=== PATIENT | female | born 1985 | race Caucasian/White ===

== ENCOUNTER 2016-09-17 04:25 | Emergency (ER) | payer BC ==
[2016-09-17] MEDS ORDERED: 0.9 % SODIUM CHLORIDE 1,000 ML IV ONE ×2 (04:52→06:30)
[2016-09-17] MEDS ORDERED: ONDANSETRON HCL/PF 4 MG/ 2ML VIAL IVP ONE (04:52)
[2016-09-17 05:03] LABS: BASOPHILS % 0.6 (0.0-1.5); EOSINOPHILS % 7.6 % (0.0-6.8); LYMPHOCYTES # 2.5 # k/uL (0.6-4.0); MEAN CORPUSCULAR HEMOGLOBIN 30.3 pg (28.0-34.0); MONOCYTES # 0.5 # k/uL (0.0-0.9); MONOCYTES % 4.1 % (0.0-11.0); NEUTROPHILS # 7.7 # k/uL (1.4-7.7)
[2016-09-17] MEDS ORDERED: KETOROLAC TROMETHAMINE 30 MG/1ML VIAL IVP ONE (05:16)
[2016-09-17] MEDS ORDERED: KETOROLAC TROMETHAMINE 30 MG/1ML VIAL ONE (05:16)
[2016-09-17 05:17] LABS: eGFR (African) > 60; eGFR (Non-African) > 60
[2016-09-17] MEDS ORDERED: PANTOPRAZOLE SODIUM 40 MG in 0.9 % SODIUM CHLORIDE 50 ML IV ONE (05:19)
--- NOTE | 2016-09-17 05:19 | ED Physician Documentation ---
General Adult - HISTORIAN Historian: patient - HPI Stated Complaint: abdominal pain, vomiting Chief Complaint: Abdominal Pain Additional Information: Cramping abdominal pain mid epigastric area since 2300 last evening. Also hurts in back, straight through. Took three tramadols about 0200 becausee she " thought they were 500 mgs each." Has had this pain occasionally since May, but it has never lasted this long. No mitigating or exacerbating factors noted. Last normal bowel movement yesterday. LNMP a month ago?? Has IUD. - ROS CONST: no problems. denies: fever GI/: nausea - PAST HX Past History: none Other History: none Surgeries/Procedures: none - SOCIAL HX Smoking History: non-smoker Alcohol Use: none Drug Use: none - FAMILY HX Family History: No - VITAL SIGNS Vital Signs: Vital Signs Temp Pulse Resp BP Pulse Ox 97.7 F 72 16 108/64 99 09/17/16 04:30 09/17/16 04:30 09/17/16 04:30 09/17/16 04:30 09/17/16 04:30 - REVIEWED ASSESSMENTS Nursing Assessment Reviewed: Yes Vitals Reviewed: Yes <BLANKA BEDOLLA - Last Filed: 09/17/16 07:03> - VITAL SIGNS Vital Signs: Vital Signs Temp Pulse Resp BP Pulse Ox 97.7 F 72 16 108/64 99 09/17/16 04:30 09/17/16 04:30 09/17/16 04:30 09/17/16 04:30 09/17/16 04:30 <Nicholas Cardona - Last Filed: 09/17/16 07:32> - PAST HX Allergies/Adverse Reactions: Allergies Allergy/AdvReac Type Severity Reaction Status Date / Time No Known Allergies Allergy Verified 09/17/16 04:50 Home Medications: Ambulatory Orders Medication Instructions Recorded NK [NK] 09/17/16 Progress - Progress Progress: Obstructive series with chest x-ray Clinical history: Recurrent epigastric pain and mid abdominal pain. Findings: Examination of the chest in single upright view demonstrates the lungs to be clear. Cardiovascular and mediastinal silhouettes are within normal limits. Examination of the abdomen in supine and upright views demonstrates gas and stool in the colon. There is no evidence of obstruction or free air. Properitoneal fat lines are preserved. There are no unusual intra-abdominal calcifications. Visualized visceral silhouettes are within normal limits. Intrauterine device is incidentally noted. Impression: 1. Negative study. Electronically signed on Sep 17, 2016 6:59:18 AM MARKER MACHINE ATTENDANT by: Garrett Duran to Dr. Eddy. <BLANKA BEDOLLA - Last Filed: 09/17/16 07:03> - Progress Progress: Pt finished 2 L NS IVF improved Drink plenty of fluids. May use [id number] stool softeners, such as Dulcolax. Use as directed. <Nicholas Cardona - Last Filed: 09/17/16 07:32> ED Results Lab/Radiology - Lab Results Lab Results: Lab Results 09/17/16 04:58 WBC 11.80 K/ul K/ul (4.00-12.00) RBC 4.79 M/ul M/ul (3.90-5.20) Hgb 14.5 g/dL g/dL (12.0-16.0) Hct 43.9 % % (34.5-46.5) MCV 91.5 fl fl (80.0-100.0) MCH 30.3 pg pg (28.0-34.0) MCHC 33.1 g/dL g/dL (30.0-36.0) RDW 12.1 % % (11.3-14.3) Plt Count 281 K/mm3 K/mm3 (130-400) Neut % (Auto) 65.7 % % (39.0-79.0) Lymph % (Auto) 20.9 % % (16.0-50.0) [place] % (Auto) 4.1 % % (0.0-11.0) Eos % (Auto) 7.6 % H % (0.0-6.8) Baso % (Auto) 0.6 (0.0-1.5) Neut # 7.7 # k/uL # k/uL (1.4-7.7) Lymph # 2.5 # k/uL # k/uL (0.6-4.0) [place] # 0.5 # k/uL # k/uL (0.0-0.9) Eos # 0.9 # k/uL H # k/uL (0.0-0.6) Baso # 0.1 # k/uL # k/uL (0.0-0.5) Reactive Lymphs % 1.1 % % (0.0-5.0) Reactive Lymphs # 0.1 # k/uL # k/uL (0.0-0.8) - Orders Orders: ED Orders Category Date Time Status AMYLASE Routine Lab 09/17/16 04:58 Received CBC/PLATELET/DIFF Routine Lab 09/17/16 04:58 Completed CMP Routine Lab 09/17/16 04:58 Received URINALYSIS Routine Lab 09/17/16 Ordered 0.9 % Sodium Chloride [Normal Saline] 1,000 ml Med 09/17/16 04:52 Active IV Q1H Ketorolac Tromethamine [Toradol] Med 09/17/16 05:16 Discontinued 30 mg .ROUTE .STK-MED ONE Ketorolac Tromethamine [Toradol] Med 09/17/16 05:16 Once 30 mg IVP NOW ONE Ondansetron HCl/Pf [Zofran 4 mg/2 ml] Med 09/17/16 04:52 Discontinued 4 mg IVP NOW ONE <BLANKA BEDOLLA - Last Filed: 09/17/16 07:03> - Lab Results Lab Results: Lab Results 09/17/16 09/17/16 04:58 04:58 WBC 11.80 K/ul K/ul (4.00-12.00) RBC 4.79 M/ul M/ul (3.90-5.20) Hgb 14.5 g/dL g/dL (12.0-16.0) Hct 43.9 % % (34.5-46.5) MCV 91.5 fl fl (80.0-100.0) MCH 30.3 pg pg (28.0-34.0) MCHC 33.1 g/dL g/dL (30.0-36.0) RDW 12.1 % % (11.3-14.3) Plt Count 281 K/mm3 K/mm3 (130-400) Neut % (Auto) 65.7 % % (39.0-79.0) Lymph % (Auto) 20.9 % % (16.0-50.0) [place] % (Auto) 4.1 % % (0.0-11.0) Eos % (Auto) 7.6 % H % (0.0-6.8) Baso % (Auto) 0.6 (0.0-1.5) Neut # 7.7 # k/uL # k/uL (1.4-7.7) Lymph # 2.5 # k/uL # k/uL (0.6-4.0) [place] # 0.5 # k/uL # k/uL (0.0-0.9) Eos # 0.9 # k/uL H # k/uL (0.0-0.6) Baso # 0.1 # k/uL # k/uL (0.0-0.5) Reactive Lymphs % 1.1 % % (0.0-5.0) Reactive Lymphs # 0.1 # k/uL # k/uL (0.0-0.8) Sodium 145 mmol/L mmol/L (136-145) Potassium 3.2 mmol/L L mmol/L (3.5-5.0) Chloride 100 mmol/L mmol/L (98-110) Carbon Dioxide 34 mmol/L H mmol/L (20-32) BUN 10 mg/dL mg/dL (10-26) Creatinine 0.7 mg/dL mg/dL (0.4-1.5) Estimated Creat Clear 129 Est GFR ( Amer) > 60 (60 - ) Est GFR (Non-Af Amer) > 60 (60 - ) Glucose 114 mg/dL H mg/dL (70-99) Calcium 9.7 mg/dL mg/dL (8.5-10.5) Total Bilirubin 0.3 mg/dL mg/dL (0.2-1.2) AST 20 U/L U/L (0-41) ALT 29 U/L U/L (0-45) Alkaline Phosphatase 71 U/L U/L (46-116) Total Protein 8.1 g/dL g/dL (6.0-8.5) Albumin 4.9 g/dL g/dL (3.0-5.5) Amylase 45 U/L U/L (20-104) - Orders Orders: ED Orders Category Date Time Status ABDOMEN WITH PA CHEST [ABD SERIES PA CHEST] [RAD] Stat Exams 09/17/16 Taken AMYLASE Routine Lab 09/17/16 04:58 Completed CBC/PLATELET/DIFF Routine Lab 09/17/16 04:58 Completed CMP Routine Lab 09/17/16 04:58 Completed URINE HCG Stat Lab 09/17/16 06:10 Ordered 0.9 % Sodium Chloride [Normal Saline] 1,000 ml Med 09/17/16 04:52 Discontinued IV Q1H 0.9 % Sodium Chloride [Normal Saline] 1,000 ml Med 09/17/16 06:30 Active IV Q1H Ketorolac Tromethamine [Toradol] Med 09/17/16 05:16 Discontinued 30 mg .ROUTE .STK-MED ONE Ketorolac Tromethamine [Toradol] Med 09/17/16 05:16 Discontinued 30 mg IVP NOW ONE Lidocaine 2%Visc 15ml [Xylocaine] Med 09/17/16 05:35 Discontinued 600 mg .ROUTE .STK-MED ONE Mag Hydrox/Al Hydrox/Simeth [Mylanta] Med 09/17/16 05:35 Discontinued 30 ml PO .STK-MED ONE Mag Hydrox/Al Hydrox/Simeth [Mylanta] 30 ml Med 09/17/16 05:20 Discontinued Lidocaine 2%Visc 15ml [Xylocaine] 20 mg PHENobarb/HYOSCY/ATROPINE/SCOP [] 10 ml PO NOW Ondansetron HCl/Pf [Zofran 4 mg/2 ml] Med 09/17/16 04:52 Discontinued 4 mg IVP NOW ONE Pantoprazole Sodium [Protonix] 40 mg Med 09/17/16 05:19 Discontinued 0.9 % Sodium Chloride [Sodium Chloride] 50 ml IV DAILY <Nicholas Cardona Last Filed: 09/17/16 07:32> General Adult Physical Exam - PHYSICAL EXAM GENERAL APPEARANCE: moderate distress (restless, tearful; stops for cell phone) EENT: eye inspection normal, ENT inspection normal, pharynx normal, no signs of dehydration NECK: normal inspection, supple RESPIRATORY: no resp distress, breath sounds normal CVS: reg rate & rhythm, heart sounds normal, no murmur ABDOMEN: soft, no organomegaly, normal bowel sounds, no distension, tenderness ( diffuse upper abdomen). No: psoas, obturator sign RECTAL: deferred BACK: normal inspection, other (diffusely tender) SKIN: warm/dry, normal color EXTREMITIES: no evidence of injury NEURO: CN's nml as tested, motor nml, sensation nml <BLANKA BEDOLLA - Last Filed: 09/17/16 07:03> Discharge <BLANKA BEDOLLA - Last Filed: 09/17/16 07:03> Decision to Admit: NO Decision Time: 07:31 <Nicholas Cardona - Last Filed: 09/17/16 07:32> Clincal Impression: Dehydration Abdominal pain Qualifiers: Abdominal location: unspecified location Qualified Code(s): R10.9 - Unspecified abdominal pain Home Medications: Ambulatory Orders NK [NK] 09/17/16 Condition: Good Disposition: 01 HOME, SELF-CARE
[2016-09-17] MEDS ORDERED: MAG HYDROX/AL HYDROX/SIMETH 30 ML, Lidocaine 2%Visc 15ml 20 MG, PHENobarb/HYOSCY/ATROPI... PO ONE ×3 (05:20)
[2016-09-17] MEDS ORDERED: MAG HYDROX/AL HYDROX/SIMETH 30 ML UDC PO ONE (05:35)
[2016-09-17] MEDS ORDERED: Lidocaine 2%Visc 15ml 20 MG/ML UDC ONE (05:35)
[2016-09-17 08:03] LABS: APPEARANCE,URINE CLOUDY (CLEAR); COLOR,URINE YELLOW (YELLOW); OCCULT BLOOD,URINE 2+ (NEGATIVE)
[2016-09-17 08:25] VITALS: BP 105/51
--- NOTE | 2016-09-17 13:42 | Diagnostic Imaging Report ---
[facility] [address] [facility].[address] [id number] Report Submission Date: Sep 17, 2016 6:59:18 AM PROFESSOR OF FOOD BIOCHEMISTRY Patient Study Name: JYOTI NEWTON Date: Sep 17, 2016 6:33:52 AM PROFESSOR OF FOOD BIOCHEMISTRY Modality Type: CR Gender: F Description: ABDOMEN : 89 Institution: [facility] Physician: GRAEME MOSCOSO Obstructive series with chest x-ray Clinical history: Recurrent epigastric pain and mid abdominal pain. Findings: Examination of the chest in single upright view demonstrates the lungs to be clear. Cardiovascular and mediastinal silhouettes are within normal limits. Examination of the abdomen in supine and upright views demonstrates gas and stool in the colon. There is no evidence of obstruction or free air. Properitoneal fat lines are preserved. There are no unusual intra-abdominal calcifications. Visualized visceral silhouettes are within normal limits. Intrauterine device is incidentally noted. Impression: 1. Negative study. Electronically signed on Sep 17, 2016 6:59:18 AM PROFESSOR OF FOOD BIOCHEMISTRY by: Jamar DOVE
== END 2016-09-17 07:53 | disposition home or self-care (01) ==
LOC: ED 04:25
DX: E86.0 Dehydration (principal); R10.9 Unspecified abdominal pain
CPT/HCPCS: 74022; 80053; 81002; 81025; 82150; 85025; 87088; A9270; J1885; J2405; J7030; 96365; 99283; 99284; S1016